=== PATIENT | male | born 1990 | race American Indian/Alaskan Native ===

== ENCOUNTER 2019-05-08 17:53 | Emergency (ER) | payer OTHER ==
[2019-05-08] MEDS ORDERED: guaiFENesin/CODEINE 5 ML UDC PO STA (19:58)
[2019-05-08] MEDS ORDERED: DOXYCYCLINE 100 MG TABLET PO STA (19:58)
[2019-05-08] MEDS ORDERED: ALBUTEROL NEB 2.5 MG/3 ML INH STA (19:58)
--- NOTE | 2019-05-08 20:01 | ED Physician Documentation ---
PD HPI DYSPNEA - Stated complaint Stated Complaint: COUGH/SOA/HEADACHE/F/C/VOM - Chief complaint Chief Complaint: Resp - History obtained from History obtained from: Patient (The current illness started 8 days ago with a flulike illness with myalgias fevers and body aches. He was getting better but then 3 days ago developed a productive cough with trace hemoptysis and the fevers recurred.) Review of Systems Constitutional: reports: Fever. denies: Chills, Myalgias Nose: denies: Rhinorrhea / runny nose Respiratory: reports: Dyspnea, Cough GI: denies: Abdominal Pain PD PAST MEDICAL HISTORY - Present Medications Home Medications: Ambulatory Orders Medication Instructions Recorded Confirmed Albuterol Sulf [Ventolin Hfa 1 - 2 puffs INH Q4HR PRN #1 inhaler 05/08/19 Inhaler] Doxycycline Hyclate 100 mg PO BID #20 capsule 05/08/19 guaiFENesin/CODEINE [Robitussin AC] 5 - 10 ml PO Q6H PRN #120 ml 05/08/19 - Allergies Allergies/Adverse Reactions: Allergies Allergy/AdvReac Type Severity Reaction Status Date / Time aspirin Allergy Edema Verified 05/08/19 18:08 ibuprofen Allergy Edema Verified 05/08/19 18:08 levofloxacin [From Levaquin] Allergy Anaphylaxis Verified 05/08/19 18:08 Penicillins Allergy Anaphylaxis Verified 05/08/19 18:08 shellfish derived Allergy Anaphylaxis Verified 05/08/19 18:08 vancomycin Allergy Anaphylaxis Verified 05/08/19 18:08 - Social History Does the pt smoke?: No Smoking Status: Never smoker PD ED PE NORMAL - Vitals Vital signs reviewed: Yes - General General: Alert and oriented X 3, No acute distress - HEENT HEENT: Ears normal, Pharynx benign - Neck Neck: Supple, no meningeal sign, No bony TTP - Cardiac Cardiac: RRR, No murmur - Respiratory Respiratory: No respiratory distress, Other (Wheezy throughout with focal rhonchi at the left base nonlabored.) - Abdomen Abdomen: Non tender - Derm Derm: No rash - Neuro Neuro: Alert and oriented X 3, Normal speech Results - Vitals Vitals: Vital Signs - 24 hr 05/08/19 18:08 Temperature 37.1 C Heart Rate 117 H Respiratory 18 Rate Blood Pressure 139/93 H O2 Saturation 95 Oxygen O2 Source Room air - Labs Labs: Laboratory Tests 05/08/19 18:13 Influenza A (Rapid) Negative Influenza B (Rapid) Negative PD MEDICAL DECISION MAKING - ED course ED course: 28-year-old gentleman with post influenza clinical pneumonia treated with doxycycline noting his allergies and albuterol for the wheezing. Departure - Departure Disposition: 01 Home, Self Care Clinical Impression: Bronchitis Pneumonia Qualifiers: Pneumonia type: due to unspecified organism Laterality: left Lung location: lower lobe of lung Qualified Code(s): J18.9 - Pneumonia, unspecified organism Condition: Good Record reviewed to determine appropriate education?: Yes Instructions: Pneumonia Dc Follow-Up: [facility] [Provider Group] [facility] [place] [Provider Group] Prescriptions: Albuterol Sulf [Ventolin Hfa Inhaler] 1 - 2 puffs INH Q4HR PRN #1 inhaler PRN Reason: Shortness Of Air/Wheezing Doxycycline Hyclate 100 mg PO BID #20 capsule guaiFENesin/CODEINE [Robitussin AC] 5 - 10 ml PO Q6H PRN #120 ml PRN Reason: Cough Comments: Return for new or worsening symptoms, follow-up with your doctor in a week for recheck.
[2019-05-08 20:33] VITALS: BP 162/85
== END 2019-05-08 20:32 | disposition home or self-care (01) ==
LOC: ED 17:53
DX: J40 Bronchitis, not specified as acute or chronic (principal); J18.9 Pneumonia, unspecified organism
CPT/HCPCS: 87275; 87276; 94640; 94664; 99283; A9270

== ENCOUNTER 2020-04-30 15:08 | Outpatient (CLI) | payer SELFPAY | END 2020-04-30 15:09 | disposition home or self-care (01) | LOC: COV 15:08 | PROVIDERS: ATTEND Family Medicine | DX: Z20.828 Contact with and (suspected) exposure to other viral communicable diseases (principal) ==